=== PATIENT | male | born 1995 | race Caucasian/White ===

== ENCOUNTER 2018-01-27 11:50 | Emergency (ER) | payer BC ==
[~2018-01-27] VITALS: Ht 175.3 cm; Wt 53.6 kg
[2018-01-27 11:53] VITALS: BP 143/78; TEMP 98.4
[2018-01-27 13:03] VITALS: PULSE 70
== END 2018-01-27 13:03 | disposition home or self-care (01) ==
LOC: COL.ER 11:50
DX: Z77.098 Contact with and (suspected) exposure to other hazardous, chiefly nonmedicinal, chemicals (principal); J45.909 Unspecified asthma, uncomplicated